=== PATIENT | male | born 1990 | race Caucasian/White ===

== ENCOUNTER 2017-06-04 20:55 | Emergency (ER) | payer OTHER ==
[~2017-06-04] VITALS: Ht 165.1 cm; Wt 82.1 kg
[2017-06-04 23:47] VITALS: BP 135/85
== END 2017-06-04 23:38 | disposition home or self-care (01) ==
LOC: ED 20:55
DX: R51 Headache (principal)

== ENCOUNTER 2018-05-26 19:53 | Emergency (ER) | payer OTHER ==
[~2018-05-26] VITALS: Ht 165.1 cm; Wt 85.7 kg
[2018-05-26 20:14] VITALS: BP 174/87; Ht 165.1 cm; Wt 85.7 kg
== END 2018-05-26 21:04 | disposition home or self-care (01) ==
LOC: ED 19:53
DX: L03.116 Cellulitis of left lower limb (principal); J45.909 Unspecified asthma, uncomplicated
CPT/HCPCS: J1885

== ENCOUNTER 2018-05-31 21:21 | Emergency (ER) | payer OTHER ==
[~2018-05-31] VITALS: Ht 165.1 cm; Wt 85.7 kg
[2018-05-31 21:51] VITALS: Ht 165.1 cm; Wt 85.7 kg
[2018-05-31 23:17] VITALS: BP 149/97
== END 2018-05-31 23:17 | disposition home or self-care (01) ==
LOC: ED 21:21
DX: M79.672 Pain in left foot (principal); M79.89 Other specified soft tissue disorders; J45.909 Unspecified asthma, uncomplicated
CPT/HCPCS: 82962; J1885

== ENCOUNTER 2020-07-18 11:26 | Emergency (ER) | payer OTHER ==
[~2020-07-18] VITALS: Ht 165.1 cm; Wt 85.3 kg
[2020-07-18 12:11] VITALS: Ht 165.1 cm; Wt 85.3 kg
[2020-07-18 12:42] VITALS: BP 141/99
== END 2020-07-18 13:40 | disposition home or self-care (01) ==
LOC: ED 11:26
DX: S61.211A Laceration without foreign body of left index finger without damage to nail, initial encounter (principal); J45.909 Unspecified asthma, uncomplicated; Z88.8 Allergy status to other drugs, medicaments and biological substances; W45.8XXA Other foreign body or object entering through skin, initial encounter; Y93.89 Activity, other specified; Y92.89 Other specified places as the place of occurrence of the external cause; Y99.8 Other external cause status
CPT/HCPCS: 90715; J2001; Q0162

== ENCOUNTER 2020-07-23 11:31 | Emergency (ER) | payer OTHER ==
[~2020-07-23] VITALS: Ht 165.1 cm; Wt 83.5 kg
[2020-07-23 12:54] VITALS: BP 144/97; Ht 165.1 cm; Wt 83.5 kg
== END 2020-07-23 12:58 | disposition home or self-care (01) ==
LOC: ED 11:31
DX: S61.211D Laceration without foreign body of left index finger without damage to nail, subsequent encounter (principal)
CPT/HCPCS: A4570